=== PATIENT | male | born 1945 | race Caucasian/White ===

== ENCOUNTER 2021-05-02 15:54 | Inpatient (IN) | payer MEDICARE, OTHER, SELFPAY ==
[2021-05-02] VITALS (13 sets, daily range): BP systolic 77–126; BP diastolic 40–72; PULSE 60–80; RESP 10–21; TEMP 36.1–37; O2SAT 96–100; BMI 35.5
--- NOTE | 2021-05-02 16:19 | DI.RAD.S_ITS ---
PROCEDURE: XR CHEST 1V INDICATIONS: suspected sepsis TECHNIQUE: One view of the chest was acquired. COMPARISON: [facility], , CHEST 1VW, 07/04/2013, 3:45. FINDINGS: Surgical changes and devices: None. Lungs and pleura: Lungs are clear. No pleural effusions or pneumothorax. Mediastinum: Mediastinal contours appear normal. Heart size is normal. Bones and chest wall: No suspicious bony lesions. Overlying soft tissues appear unremarkable. IMPRESSION: No acute pulmonary process. Dictated by: Aviva Carrillo M.D. on 05/02/2021 at 16:45 Approved by: Aviva Carrillo M.D. on 05/02/2021 at 16:46
[2021-05-02 16:40] LABS: Add Manual Diff / Slide Review NO; Basophils Absolute Auto 0 /uL (0-100); Basophils Percent Auto 0.6 % (0-2); Eosinophils Absolute Auto 100 /uL (0-450); Eosinophils Percent Auto 1.6 % (2-4); Hematocrit 31.9 % (41-53); Hemoglobin 10.6 g/dL (13.5-17.5); Lymphocytes Absolute Auto 1100 /uL (1100-4500); Lymphocytes Percent Auto 18.3 % (25-40); Mean Corpuscular HGB Conc 33.4 % (30-36); Mean Corpuscular Hemoglobin 30.8 PG (26-34); Mean Corpuscular Volume 92.3 fL (80-100); Monocytes Absolute Auto 500 /uL (0-900); Monocytes Percent Auto 8.8 % (3-14); Neutrophils Absolute Auto 4400 /uL (1500-7000); Neutrophils Percent Auto 70.7 % (50-75); Platelet Count 127 X10^3/uL (150-400); Red Blood Cell Count 3.46 X10^6/uL (4.5-5.9); Red Cell Distribution Width 13.6 % (11.6-14.8); White Blood Cell Count 6.2 X10^3/uL (4.5-11.0)
[2021-05-02] MEDS: SODIUM CHLORIDE 0.9% 1,000 ML 500 ML IV (16:41)
[2021-05-02 16:47] LABS: Alanine Aminotransferase 85 IU/L (<50); Albumin 3.5 g/dL (3.5-5.0); Albumin Globulin Ratio 0.9 (1.0-2.8); Alkaline Phosphatase 110 U/L (38-126); Aspartate Aminotransferase 52 IU/L (17-59); BUN Creatinine Ratio 30.4 (6-22); Bilirubin Total 0.6 mg/dL (0.2-1.3); Blood Urea Nitrogen 65 mg/dL (9-20); Calcium 9.3 mg/dL (8.4-10.2); Carbon Dioxide 28 mmol/L (22-32); Chloride 101 mmol/L (98-107); Creatine Kinase 28 U/L (55-170); Estimated Glomerular Filt Rate 30.2 mL/min (>60); Globulin 3.8 g/dL (1.7-4.1); Glucose 127 mg/dL (80-110); HEMOLYSIS 16 (0-50); Lipase 778 U/L (23-300); Potassium 5.1 mmol/L (3.4-5.1); Sodium 135 mmol/L (137-145); Total Protein 7.3 g/dL (6.3-8.2)
[2021-05-02 16:48] LABS: Lactate (Lactic Acid) 2.5 mmol/L (0.7-2.1)
--- NOTE | 2021-05-02 16:52 | ED_ITS ---
HPI - Headache General Chief Complaint: Headache Stated Complaint: headache Time Seen by Provider: 05/02/21 16:39 Source: patient Mode of arrival: EMS History of Present Illness HPI Narrative: Patient is somewhat a poor historian. Is initially reported that he was being brought to the emergency department because of a headache and neck discomfort however there is also reports that his blood sugar was elevated today. He is a insulin-dependent diabetic. He states that he only occasionally takes his blood sugar. He also has a history of pancreatitis and is having abdominal discomfort. Unsure as to when all of these symptoms started but appears to be sometime within the past 24-48 hours. He states he has not drank any alcohol in the past 2 months. 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 He states that his headache is all over his head. Has not tried anything for it. Also having neck discomfort. This neck discomfort is not necessarily new for him. He denies any fevers. His abdominal pain is all over but specifically on the left side. He has had symptoms similar to this in the past. No back pain. Has not tried anything for his abdominal pain for Related Data Home Medications Medication Instructions Recorded Confirmed ASCORBIC ACID (VITAMIN C) 500 mg PO QAM #0 11/06/11 ASPIRIN (#ASPI-COR) 81 mg PO HS #0 11/06/11 Apple Cider Vinegar/Kelp/Lec 1 cap PO BID #0 11/06/11 (#KELP, LECITHIN, CIDER VINEGAR & B-6) Ascorbic Acid/Vitamin B Comp (#B 1 tab PO HS #0 11/06/11 COMPLEX W/VITAMIN C) CHOLECALCIFEROL (VITAMIN D) BID #0 11/06/11 CINNAMON (#CINNAMON) 500 mg PO BID #0 11/06/11 Fish Oil (#OMEGA-3) 1,000 mg PO BID #0 11/06/11 HYDROCODONE/ACET (HYDROCODONE 0 tab PO Q6HP #0 11/06/11 BITARTRATE-ACETAMINOPHEN) Loratadine (#ALAVERT) 10 mg PO Q DAY #0 11/06/11 MULTIVITAMIN (One Daily 1 tab PO HS #0 11/06/11 Multivitamin) Milk Thistle Seed (#MILK THISTLE) 500 mg PO Q DAY #0 11/06/11 Oxycodone/Acetaminophen (Percocet 0 tab PO Q6HP #0 11/06/11 5-325 MG Tablet) POTASSIUM CHLORIDE (POTASSIUM 20 meq PO Q DAY #0 11/06/11 CHLORIDE 10ML VIAL) amlodipine 10 mg tablet 10 mg PO QDAY #0 11/06/11 atorvastatin 80 mg tablet (Lipitor) 80 mg PO HS #0 11/06/11 diazepam 5 mg tablet (Valium) 5 mg PO PRN #0 11/06/11 duloxetine 60 mg capsule,delayed 60 mg PO HS #0 11/06/11 release (Cymbalta) furosemide 40 mg tablet 40 mg PO Q DAY #0 11/06/11 insulin glargine 100 unit/mL 0 unit SQ BID #10 ml 11/06/11 subcutaneous solution (Lantus U-100 Insulin) losartan 100 mg tablet (Cozaar) HS #0 11/06/11 testosterone cypionate 200 mg/mL 200 mg IM QMONTH #0 11/06/11 intramuscular oil (Depo-Testosterone) albuterol sulfate 90 mcg/actuation PRN #0 10/03/16 aerosol inhaler (Ventolin HFA) amlodipine 5 mg tablet (Norvasc) BID #0 10/03/16 ascorbic acid (vitamin C) 500 mg QDAY #0 10/03/16 tablet aspirin 81 mg chewable tablet QPM #0 10/03/16 atorvastatin 40 mg tablet (Lipitor) QPM #0 10/03/16 carvedilol 25 mg tablet (Coreg) BID #0 10/03/16 clonidine 0.1 mg/24 hr weekly BID #0 10/03/16 transdermal patch (Rnjfaaoq-HQS-5) diazepam 5 mg tablet (Valium) PRN #0 10/03/16 diphenhydramine 25 QPM #0 10/03/16 mg-acetaminophen 500 mg tablet (Tylenol PM Extra Strength) duloxetine 60 mg capsule,delayed QPM #0 10/03/16 release (Cymbalta) furosemide 40 mg tablet BID #0 10/03/16 hydrocodone 5 mg-acetaminophen 300 3 - 325 mg PRN #0 10/03/16 mg tablet (Vicodin) hydrocortisone 1 % topical cream PRN #0 10/03/16 (Cortizone-10) insulin glargine 100 unit/mL 90 u BID #0 10/03/16 subcutaneous solution (Lantus U-100 Insulin) loratadine 10 mg capsule (Claritin QDAY #0 10/03/16 Liqui-Gel) losartan 50 mg tablet (Cozaar) QPM #0 10/03/16 multivitamin (Multiple Vitamins) QDAY #0 10/03/16 omeprazole magnesium 20 mg QDAY #0 10/03/16 tablet,delayed release (Prilosec OTC) potassium bicarbonate-citric acid QDAY #0 10/03/16 20 mEq effervescent tablet (Effer-K) Previous Rx's Medication Instructions Recorded gabapentin 300 mg capsule 300 mg PO SEE INSTRUCTIONS #360 cap 10/15/16 (Neurontin) Allergies Allergy/AdvReac Type Severity Reaction Status Date / Time From LYRICA Allergy Mild Uncoded 11/26/17 12:55 From SEPTRA DS Allergy Mild Uncoded 11/26/17 12:55 From ZOCOR Allergy Mild Uncoded 11/26/17 12:55 TCN (TETRACYCLINE) Allergy Mild Uncoded 11/26/17 12:55 Review of Systems Constitutional Constitutional: Reports as per HPI, Reports fatigue, Denies fever(s) and Reports headache(s) Eyes Eyes: Reports as per HPI and Reports system reviewed and no additional complaints, except as documented ENT Ears, Nose, Mouth, and Throat: Reports headache(s) Cardiovascular Cardiovascular: Reports system reviewed and no additional complaints, except as documented Respiratory Respiratory: Reports system reviewed and no additional complaints, except as documented Gastrointestinal Gastrointestinal: Reports as per HPI and Reports system reviewed and no additional complaints, except as documented Genitourinary Genitourinary: Reports system reviewed and no additional complaints, except as documented Musculoskeletal Musculoskeletal: Reports system reviewed and no additional complaints, except as documented Integumentary/Breasts Skin/Breast: Reports system reviewed and no additional complaints, except as documented Neurologic Neurologic: Reports headache(s) Endocrine Endocrine: Reports fatigue Hematologic/Lymphatic On Anticoagulants: No Patient History Medical History Diabetes Hyperlipidemia Hypertension Social History lives independently: Yes Exam Initial Vital Signs Initial Vital Signs: Vital Signs Temperature 97.2 F L 05/02/21 16:07 Pulse Rate 80 05/02/21 16:07 Respiratory Rate 20 05/02/21 16:07 Blood Pressure 77/40 L 05/02/21 16:07 Pulse Oximetry 99 05/02/21 16:07 Const General: comfortable HENMT Head: normal to inspection and normocephalic Nose: external nose normal Eyes General: appearance normal, both eyes and all related structures Chest Chest: normal inspection of the chest Resp Effort & Inspection: normal respiratory effort Auscultation: clear to auscultation bilaterally Cardio Rate: regular rate Rhythm: regular rhythm GI Inspection: normal to inspection Palpation: No firm and tender (Left-sided abdomen) Skin Other: Multiple chronic wounds left lower extremity Neuro General: patient alert, patient awake, patient oriented x3 and moves all extremities Cranial Nerves: CN's II-XI intact bilaterally Gait: normal gait Motor: muscle tone normal throughout Extrem Other: 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 Psych Appearance: disheveled Course Orders Ordered: ED Orders 05/02/21 16:19 XR chest 1V Stat EKG-12 Lead Stat RT Consult Eval and Treat Now 05/02/21 16:20 BNP [NT-proBNP (BNP-Adult 18+)] Stat Complete Blood Count AUTO DIFF Stat Comprehensive Metabolic Panel Stat Ethanol (ETOH) Stat Lactate (Lactic Acid) Stat Lipase Stat Procalcitonin Stat Troponin & CK Cardiac Panel Stat 05/02/21 16:50 Blood Culture Stat 05/02/21 16:53 CT abdomen pelvis w con Stat CT head/brain wo con Stat 05/02/21 18:17 COVID19 - ADMIT (MAINTENANCE REPAIRER swab/PCR) Stat Discontinued Medications Sodium Chloride (Normal Saline 0.9%) 1,000 mls @ 1,000 mls/hr IV BOLUS ONE Stop: 05/02/21 17:18 Last Admin: 05/02/21 16:41 Dose: 500 mls/hr Documented by: MORENA Vital Signs Vital signs: Vital Signs - 8 hr 05/02/21 16:07 05/02/21 16:31 05/02/21 16:32 Temperature 97.2 F L Pulse Rate 80 60 72 Respiratory Rate 20 Blood Pressure 77/40 L 91/53 L Pulse Oximetry 99 98 99 05/02/21 16:38 05/02/21 16:45 05/02/21 17:00 Temperature Pulse Rate 72 69 70 Respiratory Rate 21 10 L 16 Blood Pressure 83/51 L 87/53 L Pulse Oximetry 99 97 99 05/02/21 17:22 05/02/21 17:28 05/02/21 17:30 Temperature Pulse Rate 76 76 73 Respiratory Rate 20 Blood Pressure 107/53 L 114/57 L Pulse Oximetry 96 99 99 05/02/21 17:45 05/02/21 18:00 05/02/21 18:15 Temperature 98.6 F Pulse Rate 72 73 73 Respiratory Rate 10 L 11 L 14 Blood Pressure 107/55 L 126/59 L 113/59 L Pulse Oximetry 98 98 97 MDM - Headache Lab Data Attestation: I reviewed the patient's lab results. Result diagrams: 05/02/21 16:20 05/02/21 16:20 Labs: Lab Results 05/02/21 05/02/21 05/02/21 Range/Units 16:20 16:20 16:20 WBC 6.2 (4.5-11.0) X10^3/uL RBC 3.46 L (4.5-5.9) X10^6/uL Hgb 10.6 L (13.5-17.5) g/dL Hct 31.9 L (41-53) % MCV 92.3 (80-100) fL MCH 30.8 (26-34) PG MCHC 33.4 (30-36) % RDW 13.6 (11.6-14.8) % Plt Count 127 L (150-400) X10^3/uL Neut % (Auto) 70.7 (50-75) % Lymph % (Auto) 18.3 L (25-40) % [place] % (Auto) 8.8 (3-14) % Eos % (Auto) 1.6 L (2-4) % Baso % (Auto) 0.6 (0-2) % Neut # (Auto) 4400 (1679-4919) /uL Lymph # (Auto) 1100 (5865-3731) /uL [place] # (Auto) 500 (0-900) /uL Eos # (Auto) 100 (0-450) /uL Baso # (Auto) 0 (0-100) /uL Sodium 135 L (137-145) mmol/L Potassium 5.1 (3.4-5.1) mmol/L Chloride 101 (98-107) mmol/L Carbon Dioxide 28 (22-32) mmol/L BUN 65 H (9-20) mg/dL Creatinine 2.14 H (0.66-1.25) mg/dL Estimated GFR 30.2 L (>60) mL/min BUN/Creatinine Ratio 30.4 H (6-22) Glucose 127 H (80-110) mg/dL Lactate 2.5 H (0.7-2.1) mmol/L Calcium 9.3 (8.4-10.2) mg/dL Total Bilirubin 0.6 (0.2-1.3) mg/dL AST 52 (17-59) IU/L ALT 85 H (<50) IU/L Alkaline Phosphatase 110 (38-126) U/L Total Creatine Kinase (55-170) U/L CK-MB (CK-2) CK-MB (CK-2) Rel Index Troponin I (0.01-0.034) ng/mL NT-Pro-B Natriuret Pep (<450) pg/mL Total Protein 7.3 (6.3-8.2) g/dL Albumin 3.5 (3.5-5.0) g/dL Globulin 3.8 (1.7-4.1) g/dL Albumin/Globulin Ratio 0.9 L (1.0-2.8) Lipase 778 H (23-300) U/L Procalcitonin 1.54 H (<0.5) ng/mL Ethyl Alcohol ( - 10) mg/dL 05/02/21 05/02/21 Range/Units 16:20 16:20 WBC (4.5-11.0) X10^3/uL RBC (4.5-5.9) X10^6/uL Hgb (13.5-17.5) g/dL Hct (41-53) % MCV (80-100) fL MCH (26-34) PG MCHC (30-36) % RDW (11.6-14.8) % Plt Count (150-400) X10^3/uL Neut % (Auto) (50-75) % Lymph % (Auto) (25-40) % [place] % (Auto) (3-14) % Eos % (Auto) (2-4) % Baso % (Auto) (0-2) % Neut # (Auto) (1386-9014) /uL Lymph # (Auto) (4312-5793) /uL [place] # (Auto) (0-900) /uL Eos # (Auto) (0-450) /uL Baso # (Auto) (0-100) /uL Sodium (137-145) mmol/L Potassium (3.4-5.1) mmol/L Chloride (98-107) mmol/L Carbon Dioxide (22-32) mmol/L BUN (9-20) mg/dL Creatinine (0.66-1.25) mg/dL Estimated GFR (>60) mL/min BUN/Creatinine Ratio (6-22) Glucose (80-110) mg/dL Lactate (0.7-2.1) mmol/L Calcium (8.4-10.2) mg/dL Total Bilirubin (0.2-1.3) mg/dL AST (17-59) IU/L ALT (<50) IU/L Alkaline Phosphatase (38-126) U/L Total Creatine Kinase 28 L (55-170) U/L CK-MB (CK-2) TNP CK-MB (CK-2) Rel Index TNP Troponin I < 0.012 (0.01-0.034) ng/mL NT-Pro-B Natriuret Pep 80 (<450) pg/mL Total Protein (6.3-8.2) g/dL Albumin (3.5-5.0) g/dL Globulin (1.7-4.1) g/dL Albumin/Globulin Ratio (1.0-2.8) Lipase (23-300) U/L Procalcitonin (<0.5) ng/mL Ethyl Alcohol < 10 ( - 10) mg/dL Imaging Data Chest x-ray: Radiologist's Impression: [address] [address] XRay Report Signed Patient: Andrew Sy MR#: [id number] : 1945 Acct:[id number] Age/Sex: 75 / M Date of Service: 05/02/21 Loc: ED Accession Number: [id number] ?? Procedure: XR chest 1V Ordering Provider: Kaveh Huber D.O. PROCEDURE:? XR CHEST 1V ? INDICATIONS:? suspected sepsis ? TECHNIQUE:? One view of the chest was acquired.? ? COMPARISON:? [facility], CR, CHEST 1VW, 07/04/2013, 3:45. ? FINDINGS:? ? Surgical changes and devices:? None.? ? Lungs and pleura:? Lungs are clear.? No pleural effusions or pneumothorax.? ? Mediastinum:? Mediastinal contours appear normal.? Heart size is normal.? ? Bones and chest wall:? No suspicious bony lesions.? Overlying soft tissues appear unremarkable.? ? IMPRESSION:? No acute pulmonary process. ? ? Dictated by: Aviva Carrillo M.D. on 05/02/2021 at 16:45 ? ? Approved by: Aviva Carrillo M.D. on 05/02/2021 at 16:46? CT scan - abdomen/pelvis: Radiologist's Impression: [address] [address] [address] Scan Report Signed Patient: Andrew Sy MR#: [id number] : 1945 Acct:[id number] Age/Sex: 75 / M Date of Service: 05/02/21 Loc: ED Accession Number: [id number] ?? Procedure: CT abdomen pelvis w con Ordering Provider: Kaveh Huber D.O. PROCEDURE:? CT ABDOMEN PELVIS W CON ? INDICATIONS:? Left-sided abdominal pain ? TECHNIQUE:? After the administration of intravenous contrast, axial sections acquired from the lung bases to the pubic symphysis.? Coronal and sagittal reformats were performed.? For radiation dose reduction, the following was used:? automated exposure control, adjustment of mA and/or kV according to patient size.? ? COMPARISON:? [facility], CT, ABDOMEN W&W/O CONTRAST, 07/14/2013, 13:45. ? FINDINGS:? Image quality:? Excellent.? ? Lung bases:? Dependent atelectasis in posterior aspect of bilateral lung bases are seen. Heart:? Heart size is normal, no pericardial effusion.? Moderate coronary atherosclerotic calcifications are seen. ? ABDOMEN: Liver:? Nodular liver contour is seen, no discrete hepatic lesion is noted. Gallbladder:? Calcified stones are noted in dependent portion of gallbladder lumen.? No gallbladder wall thickening or pericholecystic fluid.? Biliary ducts:? No gross biliary ductal dilatation. Pancreas:? Pancreas is enlarged with mild peripancreatic fat stranding.? No peripancreatic fluid collection is noted.? No discrete pancreatic lesion. Spleen:? There is splenomegaly, no discrete splenic lesion. Adrenal Glands:? Unremarkable.? ? Kidneys and Ureters:? Bilateral kidneys are normal in size.? Bilateral tiny nonobstructing renal calculi are noted.? There are bilateral renal cysts measures up to 3.5 x 3.3 cm in size in mid to lower pole of left kidney.? No hydronephrosis or hydroureter. ? Stomach and Bowel:? There is mild fecal stasis in the colon.? No bowel obstruction or abnormal bowel wall thickening.? No mesenteric fat stranding.? Descending colon and sigmoid colon diverticulosis is seen, no evidence of acute diverticulitis.? Small hiatal hernia is seen. Peritoneum:? No abnormal intraperitoneal fluid.? No free air.? ? Ventral Wall: ? No hernias.? Abdominal Nodes:? No retroperitoneal or mesenteric adenopathy by size criteria.? Vessels:? Aorta and inferior vena cava are normal in size.? Moderate atherosclerotic calcifications throughout abdominal aorta is seen.? ? PELVIS: Pelvic Organs:? Enlarged prostate gland with mass effect on floor of urinary bladder is seen. Bladder:? There is mild diffuse bladder wall thickening, no discrete bladder wall mass. Pelvic Nodes: No enlarged lymph nodes.? Miscellaneous:? Bilateral inguinal hernia are seen containing fat only.? Bones:? No suspicious bony lesion.? No acute vertebral body compression fracture. ? ? IMPRESSION:? 1. Enlarged pancreas with mild peripancreatic fat stranding, concerning for acute pancreatitis suggest clinical correlation.? No discrete peripancreatic fluid collection is seen. 2.? Lobulated liver contour which could represent early cirrhosis suggest clinical correlation.? Splenomegaly, no discrete splenic lesion. 3.? Bilateral nonobstructing renal calculi and multiple bilateral renal cysts.? No obstructing renal stone or hydronephrosis.? Mild diffuse bladder wall thickening which may indicate chronic urinary outlet obstruction.? No discrete bladder wall mass.? Enlarged prostate gland with mild mass effect on floor of urinary bladder. 4. Small hiatal hernia.? No bowel obstruction.? Mild constipation.? No abnormal bowel wall thickening.? No free fluid or free air. 5. Cholelithiasis without CT evidence of acute cholecystitis. 6. Bilateral inguinal hernia containing fat only.? ? ? Dictated by: Calos Hyde M.D. on 05/02/2021 at 17:30 ? ? Approved by: Calos Hyde M.D. on 05/02/2021 at 17:37 CT scan - head: Radiologist's Impression: [address] [address] [address] Scan Report Signed Patient: Andrew Sy MR#: [id number] : 1945 Acct:[id number] Age/Sex: 75 / M Date of Service: 05/02/21 Loc: ED Accession Number: [id number] ?? Procedure: CT head/brain wo con Ordering Provider: Kaveh Huber D.O. PROCEDURE:? CT HEAD/BRAIN WO CON ? INDICATIONS:? bad headache ? TECHNIQUE:? Noncontrast 4.5 mm thick angled axial sections acquired from the foramen magnum to the vertex, with coronal and sagittal reformats.? For radiation dose reduction, the following was used:? automated exposure control, adjustment of mA and/or kV according to patient size.? ? COMPARISON:? None. ? FINDINGS:? Image quality:? Excellent.? ? CSF spaces:? Basal cisterns are patent.? No extra-axial fluid collections.? The ventricles are symmetric in size and shape.? ? Brain:? No intracranial bleeds or masses.? There is cerebral volume loss for age, with resultant ventricular and sulcal prominence.? There are periventricular and deep white matter chronic small vessel ischemic changes.? There is intracranial internal carotid artery atherosclerosis.? ? Skull and face:? Calvarium and visualized facial bones appear intact, without suspicious lesions.? ? Sinuses:? Visualized sinuses and mastoids are clear.? ? IMPRESSION:? 1. No CT evidence of acute intracranial pathology. 2. Diffuse atrophy and mild white matter chronic small vessel ischemic changes.? ? ? Dictated by: Calos Hyde M.D. on 05/02/2021 at 17:27 ? ? Approved by: Calos Hyde M.D. on 05/02/2021 at 17:28 ECG Data Attestation: I personally reviewed and interpreted this ECG as follows: Interpretation: Sinus rhythm Normal axis Normal QRS Normal QTC No ST T wave changes- [facility] Narrative Medical decision making narrative: Head CT is unremarkable, I have low suspicion for meningitis. Low suspicion for intracranial pathology. Patient CT scan of his abdomen pelvis shows what is consistent with pancreatitis. He does not have leukocytosis however does have an elevated procalcitonin. Elevated lactate, physical exam is consistent with pancreatitis and a history that is consistent with this. He states he has not drink any alcohol in the past 2 months. Apparently this is been the cause of his pancreatitis in the past. Patient arrived hypotensive however this improved with fluids. His mean arterial pressure was never below 65. He is afebrile. He does have chronic wounds in his left lower extremity however I feel that his presentation today is more consistent with pancreatitis. Low suspicion for pneumonia. Will hold on antibiotics for now given the fact that this is most likely pancreatitis. Discussed the case with Dr. Culver with Internal Medicine who will admit for further evaluation treatment. Discussed this with the patient as well. He expressed understanding and agreement. Discharge Plan Departure Patient Disposition: Admitted As Inpatient Clinical Impression: Acute pancreatitis, Hypotension
--- NOTE | 2021-05-02 16:53 | DI.CT.S_ITS ---
PROCEDURE: CT ABDOMEN PELVIS W CON INDICATIONS: Left-sided abdominal pain TECHNIQUE: After the administration of intravenous contrast, axial sections acquired from the lung bases to the pubic symphysis. Coronal and sagittal reformats were performed. For radiation dose reduction, the following was used: automated exposure control, adjustment of mA and/or kV according to patient size. COMPARISON: [facility], CT, ABDOMEN W&W/O CONTRAST, 07/14/2013, 13:45. FINDINGS: Image quality: Excellent. Lung bases: Dependent atelectasis in posterior aspect of bilateral lung bases are seen. Heart: Heart size is normal, no pericardial effusion. Moderate coronary atherosclerotic calcifications are seen. ABDOMEN: Liver: Nodular liver contour is seen, no discrete hepatic lesion is noted. Gallbladder: Calcified stones are noted in dependent portion of gallbladder lumen. No gallbladder wall thickening or pericholecystic fluid. Biliary ducts: No gross biliary ductal dilatation. Pancreas: Pancreas is enlarged with mild peripancreatic fat stranding. No peripancreatic fluid collection is noted. No discrete pancreatic lesion. Spleen: There is splenomegaly, no discrete splenic lesion. Adrenal Glands: Unremarkable. Kidneys and Ureters: Bilateral kidneys are normal in size. Bilateral tiny nonobstructing renal calculi are noted. There are bilateral renal cysts measures up to 3.5 x 3.3 cm in size in mid to lower pole of left kidney. No hydronephrosis or hydroureter. Stomach and Bowel: There is mild fecal stasis in the colon. No bowel obstruction or abnormal bowel wall thickening. No mesenteric fat stranding. Descending colon and sigmoid colon diverticulosis is seen, no evidence of acute diverticulitis. Small hiatal hernia is seen. Peritoneum: No abnormal intraperitoneal fluid. No free air. Ventral Wall: No hernias. Abdominal Nodes: No retroperitoneal or mesenteric adenopathy by size criteria. Vessels: Aorta and inferior vena cava are normal in size. Moderate atherosclerotic calcifications throughout abdominal aorta is seen. PELVIS: Pelvic Organs: Enlarged prostate gland with mass effect on floor of urinary bladder is seen. Bladder: There is mild diffuse bladder wall thickening, no discrete bladder wall mass. Pelvic Nodes: No enlarged lymph nodes. Miscellaneous: Bilateral inguinal hernia are seen containing fat only. Bones: No suspicious bony lesion. No acute vertebral body compression fracture. IMPRESSION: 1. Enlarged pancreas with mild peripancreatic fat stranding, concerning for acute pancreatitis suggest clinical correlation. No discrete peripancreatic fluid collection is seen. 2. Lobulated liver contour which could represent early cirrhosis suggest clinical correlation. Splenomegaly, no discrete splenic lesion. 3. Bilateral nonobstructing renal calculi and multiple bilateral renal cysts. No obstructing renal stone or hydronephrosis. Mild diffuse bladder wall thickening which may indicate chronic urinary outlet obstruction. No discrete bladder wall mass. Enlarged prostate gland with mild mass effect on floor of urinary bladder. 4. Small hiatal hernia. No bowel obstruction. Mild constipation. No abnormal bowel wall thickening. No free fluid or free air. 5. Cholelithiasis without CT evidence of acute cholecystitis. 6. Bilateral inguinal hernia containing fat only. Dictated by: Calos Hyde M.D. on 05/02/2021 at 17:30 Approved by: Calos Hyde M.D. on 05/02/2021 at 17:37
--- NOTE | 2021-05-02 16:53 | DI.CT.S_ITS ---
PROCEDURE: CT HEAD/BRAIN WO CON INDICATIONS: bad headache TECHNIQUE: Noncontrast 4.5 mm thick angled axial sections acquired from the foramen magnum to the vertex, with coronal and sagittal reformats. For radiation dose reduction, the following was used: automated exposure control, adjustment of mA and/or kV according to patient size. COMPARISON: None. FINDINGS: Image quality: Excellent. CSF spaces: Basal cisterns are patent. No extra-axial fluid collections. The ventricles are symmetric in size and shape. Brain: No intracranial bleeds or masses. There is cerebral volume loss for age, with resultant ventricular and sulcal prominence. There are periventricular and deep white matter chronic small vessel ischemic changes. There is intracranial internal carotid artery atherosclerosis. Skull and face: Calvarium and visualized facial bones appear intact, without suspicious lesions. Sinuses: Visualized sinuses and mastoids are clear. IMPRESSION: 1. No CT evidence of acute intracranial pathology. 2. Diffuse atrophy and mild white matter chronic small vessel ischemic changes. Dictated by: Calos Hyde M.D. on 05/02/2021 at 17:27 Approved by: Calos Hyde M.D. on 05/02/2021 at 17:28
[2021-05-02 16:59] LABS: NT-proBNP (BNP-Adult 18+) 80 pg/mL (<450); Troponin I < 0.012 ng/mL (0.01-0.034)
[2021-05-02 17:04] LABS: Procalcitonin 1.54 ng/mL (<0.5)
[2021-05-02 17:07] LABS: Ethanol (ETOH) < 10 mg/dL
[2021-05-02 18:28] LABS: Reflexed Lactate in 2 Hours Y
[2021-05-02 19:39] LABS: COVID19 - ADMIT (NP swab/PCR) Negative (Negative)
--- NOTE | 2021-05-02 20:50 | PM.HP.1 ---
History of Present Illness History of Present Illness Date Patient Seen: 05/02/21 Time Patient Seen: 20:53 Chief complaint: headache Narrative: The patient is a 75-year-old male with a history of type 2 diabetes, hypertension, hyperlipidemia, prior history of pancreatitis, remote history of EtOH use who quit 3 months ago who presented to the hospital for acute abdominal pain. Patient states that today he woke up and was feeling quite shaky unsteady and dizzy. He also complained of a headache and neck pain. Because he was feeling poorly he presented to the hospital for evaluation. Patient also reports lower diffuse abdominal pain. He has no nausea or vomiting. He does report constipation. He has had no fever chills or cough. He denies any shortness of breath chest pain or palpitations. 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 He also has ulceration on the left lower extremity and has a dressing in place which she changes weekly. The patient was evaluated in the emergency room. White count was normal at 6.2. He was found to have a creatinine of 2.14, baseline unknown. In addition he was found to have a lipase of 778 with a procalcitonin of 1.54. A CT of the abdomen and pelvis revealed an enlarged pancreas with mild pancreas peripancreatic fat stranding suggestive of acute pancreatitis. There was a lobulated liver which could represent early cirrhosis. Patient is admitted to the hospital for treatment of acute pancreatitis Patient History Medical History Diabetes Hyperlipidemia Hypertension Surgical History (Updated 05/02/21 @ 21:26 by Iris Bello MD) Hx of right BKA Family & Social History Family History (Updated 05/02/21 @ 21:26 by Iris Bello MD) Mother Lymphoma Social History: household members spouse,other Prior Living Arrangements House lives independently Yes Safety & Behavioral: Feels Safe in Current Yes Environment Been Physically Hurt or No Threatened By a Person Suicidal Ideation Description None Tobacco & Substance use: Tobacco type cigarettes Smoking Status Former smoker Smoking packs per day 2 alcohol intake former alcohol intake frequency 3 or more drinks per day Substance Use Type opiates Meds Home Medications and Allergies Home Medications Medication Instructions Recorded Confirmed Type ASCORBIC ACID (VITAMIN C) 500 mg PO QAM #0 11/06/11 History ASPIRIN (#ASPI-COR) 81 mg PO HS #0 11/06/11 History Apple Cider Vinegar/Kelp/Lec 1 cap PO BID #0 11/06/11 History (#KELP, LECITHIN, CIDER VINEGAR & B-6) Ascorbic Acid/Vitamin B Comp (#B 1 tab PO HS #0 11/06/11 History COMPLEX W/VITAMIN C) CHOLECALCIFEROL (VITAMIN D) BID #0 11/06/11 History CINNAMON (#CINNAMON) 500 mg PO BID #0 11/06/11 History Fish Oil (#OMEGA-3) 1,000 mg PO BID #0 11/06/11 History HYDROCODONE/ACET (HYDROCODONE 0 tab PO Q6HP #0 11/06/11 History BITARTRATE-ACETAMINOPHEN) Loratadine (#ALAVERT) 10 mg PO Q DAY #0 11/06/11 History MULTIVITAMIN (One Daily 1 tab PO HS #0 11/06/11 History Multivitamin) Milk Thistle Seed (#MILK THISTLE) 500 mg PO Q DAY #0 11/06/11 History Oxycodone/Acetaminophen (Percocet 0 tab PO Q6HP #0 11/06/11 History 5-325 MG Tablet) POTASSIUM CHLORIDE (POTASSIUM 20 meq PO Q DAY #0 11/06/11 History CHLORIDE 10ML VIAL) amlodipine 10 mg tablet 10 mg PO QDAY #0 11/06/11 History atorvastatin 80 mg tablet (Lipitor) 80 mg PO HS #0 11/06/11 History diazepam 5 mg tablet (Valium) 5 mg PO PRN #0 11/06/11 History duloxetine 60 mg capsule,delayed 60 mg PO HS #0 11/06/11 History release (Cymbalta) furosemide 40 mg tablet 40 mg PO Q DAY #0 11/06/11 History insulin glargine 100 unit/mL 0 unit SQ BID #10 ml 11/06/11 History subcutaneous solution (Lantus U-100 Insulin) losartan 100 mg tablet (Cozaar) HS #0 11/06/11 History testosterone cypionate 200 mg/mL 200 mg IM QMONTH #0 11/06/11 History intramuscular oil (Depo-Testosterone) albuterol sulfate 90 mcg/actuation PRN #0 10/03/16 History aerosol inhaler (Ventolin HFA) amlodipine 5 mg tablet (Norvasc) BID #0 10/03/16 History ascorbic acid (vitamin C) 500 mg QDAY #0 10/03/16 History tablet aspirin 81 mg chewable tablet QPM #0 10/03/16 History atorvastatin 40 mg tablet (Lipitor) QPM #0 10/03/16 History carvedilol 25 mg tablet (Coreg) BID #0 10/03/16 History clonidine 0.1 mg/24 hr weekly BID #0 10/03/16 History transdermal patch ([place]-GBN-7) diazepam 5 mg tablet (Valium) PRN #0 10/03/16 History diphenhydramine 25 QPM #0 10/03/16 History mg-acetaminophen 500 mg tablet (Tylenol PM Extra Strength) duloxetine 60 mg capsule,delayed QPM #0 10/03/16 History release (Cymbalta) furosemide 40 mg tablet BID #0 10/03/16 History hydrocodone 5 mg-acetaminophen 300 3 - 325 mg PRN #0 10/03/16 History mg tablet (Vicodin) hydrocortisone 1 % topical cream PRN #0 10/03/16 History (Cortizone-10) insulin glargine 100 unit/mL 90 u BID #0 10/03/16 History subcutaneous solution (Lantus U-100 Insulin) loratadine 10 mg capsule (Claritin QDAY #0 10/03/16 History Liqui-Gel) losartan 50 mg tablet (Cozaar) QPM #0 10/03/16 History multivitamin (Multiple Vitamins) QDAY #0 10/03/16 History omeprazole magnesium 20 mg QDAY #0 10/03/16 History tablet,delayed release (Prilosec OTC) potassium bicarbonate-citric acid QDAY #0 10/03/16 History 20 mEq effervescent tablet (Effer-K) gabapentin 300 mg capsule 300 mg PO SEE INSTRUCTIONS #360 cap 10/15/16 Rx (Neurontin) Allergies Allergy/AdvReac Type Severity Reaction Status Date / Time From LYRICA Allergy Mild Uncoded 11/26/17 12:55 From SEPTRA DS Allergy Mild Uncoded 11/26/17 12:55 From ZOCOR Allergy Mild Uncoded 11/26/17 12:55 TCN (TETRACYCLINE) Allergy Mild Uncoded 11/26/17 12:55 Review of Systems Review of Systems Narrative: Ten point review of systems is negative I have reviewed the patient's home medications Exam Vital Signs (past 8 hours): - 05/02/21 16:07 05/02/21 16:31 05/02/21 16:32 Temperature 97.2 F L Pulse Rate 80 60 72 Respiratory Rate 20 Blood Pressure 77/40 L 91/53 L Pulse Oximetry 99 98 99 05/02/21 16:38 05/02/21 16:45 05/02/21 17:00 Temperature Pulse Rate 72 69 70 Respiratory Rate 21 10 L 16 Blood Pressure 83/51 L 87/53 L Pulse Oximetry 99 97 99 05/02/21 17:22 05/02/21 17:28 05/02/21 17:30 Temperature Pulse Rate 76 76 73 Respiratory Rate 20 Blood Pressure 107/53 L 114/57 L Pulse Oximetry 96 99 99 05/02/21 17:45 05/02/21 18:00 05/02/21 18:15 Temperature 98.6 F Pulse Rate 72 73 73 Respiratory Rate 10 L 11 L 14 Blood Pressure 107/55 L 126/59 L 113/59 L Pulse Oximetry 98 98 97 05/02/21 19:20 Temperature 96.9 F L Pulse Rate 73 Respiratory Rate 20 Blood Pressure 107/72 Pulse Oximetry 100 Oxygen Delivery Method Room Air Oxygen Flow Rate 0 Narrative Exam Narrative: Pleasant gentleman resting comfortably HENNY Other: HEENT: Normocephalic atraumatic, extraocular muscles are intact, oropharynx is clear, neck is supple without adenopathy Neck Other: Neck is soft, no adenopathy noted Resp Other: Lungs: Clear to auscultation Cardio Other: Cardiac exam: Regular rate and rhythm normal S1-S2 with a 2/6 systolic ejection murmur GI Other: Abdomen: Soft, exquisitely tender to palpation, tender in the lower left and right quadrants. There is no rebound tenderness. There is no palpable masses. Right upper quadrant liver is felt to be 2 finger breaths below the costal margin. Normal active bowel tones are noted Back/Spine/Pelvis Other: Back exam no lesions noted Skin Other: Left lower extremity with very dry skin and superficial abrasion on this she had an. The left ankle with some crusting old healed ulcerations Extrem Other: No edema of the lower extremity Psych Other: Patient is appropriate, answers questions accordingly, is alert and responsive and has no evidence of hallucination Objective Labs Result Diagrams: 05/02/21 16:20 05/02/21 16:20 Labs: Laboratory Results - last 24 hr 05/02/21 05/02/21 05/02/21 16:20 16:20 16:20 WBC 6.2 RBC 3.46 L Hgb 10.6 L Hct 31.9 L MCV 92.3 MCH 30.8 MCHC 33.4 RDW 13.6 Plt Count 127 L Neut % (Auto) 70.7 Lymph % (Auto) 18.3 L [place] % (Auto) 8.8 Eos % (Auto) 1.6 L Baso % (Auto) 0.6 Neut # (Auto) 4400 Lymph # (Auto) 1100 [place] # (Auto) 500 Eos # (Auto) 100 Baso # (Auto) 0 Sodium 135 L Potassium 5.1 Chloride 101 Carbon Dioxide 28 BUN 65 H Creatinine 2.14 H Estimated GFR 30.2 L BUN/Creatinine Ratio 30.4 H Glucose 127 H Lactate 2.5 H Calcium 9.3 Total Bilirubin 0.6 AST 52 ALT 85 H Alkaline Phosphatase 110 Total Creatine Kinase CK-MB (CK-2) CK-MB (CK-2) Rel Index Troponin I NT-Pro-B Natriuret Pep Total Protein 7.3 Albumin 3.5 Globulin 3.8 Albumin/Globulin Ratio 0.9 L Lipase 778 H Procalcitonin 1.54 H Ethyl Alcohol SARS-CoV-2 (PCR) 05/02/21 05/02/21 05/02/21 16:20 16:20 18:30 WBC RBC Hgb Hct MCV MCH MCHC RDW Plt Count Neut % (Auto) Lymph % (Auto) [place] % (Auto) Eos % (Auto) Baso % (Auto) Neut # (Auto) Lymph # (Auto) [place] # (Auto) Eos # (Auto) Baso # (Auto) Sodium Potassium Chloride Carbon Dioxide BUN Creatinine Estimated GFR BUN/Creatinine Ratio Glucose Lactate Calcium Total Bilirubin AST ALT Alkaline Phosphatase Total Creatine Kinase 28 L CK-MB (CK-2) TNP CK-MB (CK-2) Rel Index TNP Troponin I < 0.012 NT-Pro-B Natriuret Pep 80 Total Protein Albumin Globulin Albumin/Globulin Ratio Lipase Procalcitonin Ethyl Alcohol < 10 SARS-CoV-2 (PCR) Negative Assessment & Plan Assessment & Plan narrative: Impression 1. 75-year-old male admitted to the hospital with acute abdominal pain, elevated lipase, abnormal CT scan suggestive of acute pancreatitis -patient has a remote history of alcohol use but reports no alcohol for the past 3 months -he is currently on a statin for hyperlipidemia -lipase on admission is 778 -patient was hypotensive on admission, this improved with IV hydration -CT of the abdomen and pelvis Enlarged pancreas with mild peripancreatic fat stranding, concerning for acute pancreatitis suggest clinical correlation.? No discrete peripancreatic fluid collection is seen. -patient will continue on IV hydration, he will be made NPO, given antiemetics, and pain medication 2. Hypotension, -elevated lactate at 2.5, creatinine 2.1 for -as we are unsure of his baseline creatinine it is hard to ascertain whether the patient has septic shock with end-organ failure -patient responded to IV hydration -Lasix will be held at this time -will hold his lisinopril as well 3 renal failure, question acute versus chronic -baseline creatinine is unknown\ -hold diuretics and FELIPA-inhibitor as above 4. Hyperlipidemia -continue statin 5. Type 2 diabetes -patient previously on 100 units of Lantus twice daily -will obtain a glycohemoglobin -as he is NPO will decrease his insulin to 50 units twice daily plus a sliding scale 7. Diabetic polyneuropathy -will continue Neurontin 8. Question history of heart failure coronary disease -patient on Coreg 25 twice daily, and aspirin, will continue same 9. Anxiety and depression -continue Cymbalta Patient reports his son is his DPOA Patient also reports he would like to be a full code He is admitted to the hospital as an inpatient I have reviewed all medications available to me and updated his chart accordingly Time Spent With Patient Critical Care time: I spent a total of [] minutes of critical care time on this patient's care today; this time is exclusive of procedural time.
[2021-05-02] MEDS: LACTATED RINGERS 1,000 ML 100 ML IV (21:11)
[2021-05-02] MEDS: DOCUSATE 100 MG CAPSULE PO (21:11)
[2021-05-02] MEDS: ATORVASTATIN 20 MG TABLET 40 MG PO (21:11)
[2021-05-02] MEDS: SENNOSIDES 8.6 MG TABLET 17.2 MG PO (21:11)
[2021-05-02] MEDS: carvediloL 12.5 MG TABLET 25 MG PO (21:11)
[2021-05-02] MEDS: HEPARIN 5,000 UNIT/ML VIAL 5000 UNIT SUBCUT (21:14)
[2021-05-02] MEDS: INSULIN GLARGINE 100 UNIT/ML 3ML PEN 50 UNIT SUBCUT (21:30)
[2021-05-02 21:38] LABS: Lactate 2HR (Lactic Acid Rflx) 1.8 mmol/L (0.7-2.1)
[2021-05-03] VITALS (8 sets, daily range): BP systolic 88–153; BP diastolic 60–97; PULSE 67–74; RESP 16–18; TEMP 35.8–36.5; O2SAT 94–99
[2021-05-03] MEDS: MORPHINE 4 MG/ML INJ IV (01:20)
[2021-05-03] MEDS: DEXTROSE 50 % IN WATER 25 GM/50 ML SYRINGE IV ×2 (01:40→06:15)
[2021-05-03] MEDS: LACTATED RINGERS 500 ML 1000 ML IV (03:00)
--- NOTE | 2021-05-03 03:11 | PC.NURSE ---
Addendum entered by Myra Borden R.N. 05/03/21 06:18: At 0550 pt alerted RN Abhijit Harris of chills, shakiness, general malaise. Pt fatigued. Glucose 45 mg/dL, BP 153/97 HR 71. Given PRN D50 25 mg IV. Provider contacted, ordered discontinuation of insulin and added D10W 50 mL/hr to run concurrent with LR @ 100mL/hr. 0625 glucose 127 mg/dL. Original Note: BGC at 0155 61, patient reported dizzniess, shakiness, and general malaise. Provider notified, ordered D50 25 mg one time dose. Administered with no difficulty. Glu increased to 169. At approximately 0216, this RN was notified by CERTIFIED ADDICTION COUNSELOR of low BP. Pt asymptomatic, alert and oriented, in no apparent cardiovascular or respiratory distress, w/ complaints of 8/10 lower abdominal pain. 0216 BP 79/40 HR 72 0218 BP 60/45 HR 67 Bladder scan showed 999+ mL present in bladder. Provider notified, ordered 500 mL LR bolus one NOW and placement of tovar cath. Tovar placed at 0230 by this RN. Approx 1500 mL out, urine cloudy, foul-smelling, and yellow. 0243 BP 106/68 HR 63 Pt reports pain significantly reduced. Remains asymptomatic. 0256 BP 103/70 HR 65 Will continue to monitor.
[2021-05-03 03:48] LABS: Bilirubin Urine UA NEGATIVE (NEGATIVE); Color Urine UA YELLOW; Glucose Urine UA TRACE g/dL (Negative); Ketones Urine UA NEGATIVE (NEGATIVE); Leukocyte Esterase Urine UA 3+ (NEGATIVE); Nitrite Urine UA NEGATIVE (Negative); Occult Blood Urine UA 2+ (Negative); Protein Urine UA 1+ (Negative); Urobilinogen Urine UA 0.2 E.U./dL (0.2); pH Urine UA 5.5 (4.5-8.0)
[2021-05-03 03:54] LABS: Appearance Urine UA CLOUDY
[2021-05-03] MEDS: LACTATED RINGERS 1,000 ML 100 ML IV (03:54)
[2021-05-03] MEDS: DEXTROSE 10 % IN WATER 1,000 ML 50 ML IV (06:15)
[2021-05-03 06:28] LABS: Bacteria Urine Many (>30); Culture Indicated Urine Specimen Cultured; RBC Urine None Seen (0-5/HPF); WBC Urine >100/HPF (0-5/HPF)
[2021-05-03 07:14] LABS: Add Manual Diff / Slide Review NO; Basophils Absolute Auto 0 /uL (0-100); Basophils Percent Auto 0.6 % (0-2); Eosinophils Absolute Auto 100 /uL (0-450); Eosinophils Percent Auto 2.7 % (2-4); Hematocrit 29.8 % (41-53); Hemoglobin 9.9 g/dL (13.5-17.5); Lymphocytes Absolute Auto 1300 /uL (1100-4500); Lymphocytes Percent Auto 24.3 % (25-40); Mean Corpuscular HGB Conc 33.2 % (30-36); Mean Corpuscular Hemoglobin 30.7 PG (26-34); Mean Corpuscular Volume 92.4 fL (80-100); Monocytes Absolute Auto 500 /uL (0-900); Neutrophils Absolute Auto 3400 /uL (1500-7000); Neutrophils Percent Auto 63.4 % (50-75); Platelet Count 109 X10^3/uL (150-400); Red Blood Cell Count 3.22 X10^6/uL (4.5-5.9); Red Cell Distribution Width 13.4 % (11.6-14.8); White Blood Cell Count 5.3 X10^3/uL (4.5-11.0)
[2021-05-03 07:23] LABS: Alanine Aminotransferase 79 IU/L (<50); Albumin 3.1 g/dL (3.5-5.0); Albumin Globulin Ratio 0.9 (1.0-2.8); Alkaline Phosphatase 97 U/L (38-126); Aspartate Aminotransferase 52 IU/L (17-59); BUN Creatinine Ratio 36.5 (6-22); Bilirubin Total 0.5 mg/dL (0.2-1.3); Blood Urea Nitrogen 54 mg/dL (9-20); Calcium 8.8 mg/dL (8.4-10.2); Carbon Dioxide 27 mmol/L (22-32); Chloride 106 mmol/L (98-107); Estimated Glomerular Filt Rate 46.2 mL/min (>60); Globulin 3.4 g/dL (1.7-4.1); Glucose 118 mg/dL (80-110); HEMOLYSIS < 15 (0-50); Potassium 3.8 mmol/L (3.4-5.1); Sodium 137 mmol/L (137-145); Total Protein 6.5 g/dL (6.3-8.2)
[2021-05-03 07:24] LABS: Hemoglobin A1C% w Est Avg Glu 11.9 % (4.0-6.0)
[2021-05-03] MEDS: GABAPENTIN 300 MG CAPSULE PO (08:37)
[2021-05-03] MEDS: HEPARIN 5,000 UNIT/ML VIAL 5000 UNIT SUBCUT ×2 (08:37→20:22)
[2021-05-03] MEDS: cefTRIAXone 1,000 MG in SODIUM CHLORIDE 0.9% 100 ML 200 ML IV (08:37)
[2021-05-03] MEDS: DULOXETINE 30 MG CAPSULE 60 MG PO (08:37)
[2021-05-03] MEDS: ASPIRIN EC 81 MG TABLET PO (08:37)
--- NOTE | 2021-05-03 11:11 | CM.DANOTE ---
DCP: Case received, EMR reviewed and met with patient. Introduced self and role. Was able to obtain information from patient regarding his baseline activity status at home prior to his hospitalization, and his current living condition. DCP assessment completed with information currently available. Patient is a 75 year old male who admitted yesterday evening to the care of the hospitalist team. PCP: Dr. Jones. Payer: confirmed: Medicare/[employer]. Patient came to the hospital via ambulance secondary to having increased weakness, diaphoresis, as well as a headache. Patient holds diagnosis of acute pancreatitis, AKA, as well as UTI. Patient has had ETOH history, but had stopped drinking approximately 2-3 months ago. Patient is an insulin dependent diabetic, and according to notes, is not consistent upon checking his blood sugars. He is also a below the right knee amputee. Met with patient in his room. He was sitting up in his bed. He is alert, was able to answer some questions. He did confirm his primary provider, Dr. Jones. He resides in [place] with his spouse, Nikki. He stated, his has some dementia. Asked him is she was ok at home, he did not seem concerned. Asked him about his baseline mobility at home, and he indicated that he uses a wheel-chair. He stated, he has driven before, but not lately. According to team rounds, patient is anticipated to be here for a couple of days. P: DCP to continue to follow for needs. He may benefit with home health nursing, for home med management. Felisha Jo RN/Electrical Products Engineer
--- NOTE | 2021-05-03 11:53 | P.PN_ITS ---
Subjective Subjective Date Patient Seen: 05/03/21 Time Patient Seen: 08:00 Interval history: Today he says he feels his back is painful. No further headache. He still has some abdominal pain, but much improved. He wants to eat. Exam Vital Signs (past 8 hours): - 05/03/21 05:50 05/03/21 06:00 05/03/21 10:00 Temperature 96.9 F L Pulse Rate 71 67 68 Respiratory Rate 16 Blood Pressure 153/97 H 139/84 Pulse Oximetry 94 96 Oxygen Delivery Method Room Air Oxygen Flow Rate 0 Narrative Exam Narrative: GEN: no acute distress HEENT: moist mucous membranes CV: regular rate and rhythm with 2/6 chio PULM clear bilaterally, no wheezes, rhonchi, rales ABD: soft, moderately tender epigastric, no rebound/guarding, normal bowel sounds EXT: warm and well perfused, bka noted Objective Labs Result Diagrams: 05/03/21 07:01 05/03/21 07:01 Labs: Laboratory Results - last 24 hr 05/02/21 05/02/21 05/02/21 16:20 16:20 16:20 WBC 6.2 RBC 3.46 L Hgb 10.6 L Hct 31.9 L MCV 92.3 MCH 30.8 MCHC 33.4 RDW 13.6 Plt Count 127 L Neut % (Auto) 70.7 Lymph % (Auto) 18.3 L [place] % (Auto) 8.8 Eos % (Auto) 1.6 L Baso % (Auto) 0.6 Neut # (Auto) 4400 Lymph # (Auto) 1100 [place] # (Auto) 500 Eos # (Auto) 100 Baso # (Auto) 0 Sodium 135 L Potassium 5.1 Chloride 101 Carbon Dioxide 28 BUN 65 H Creatinine 2.14 H Estimated GFR 30.2 L BUN/Creatinine Ratio 30.4 H Glucose 127 H Hemoglobin A1c Lactate 2.5 H Calcium 9.3 Total Bilirubin 0.6 AST 52 ALT 85 H Alkaline Phosphatase 110 Total Creatine Kinase CK-MB (CK-2) CK-MB (CK-2) Rel Index Troponin I NT-Pro-B Natriuret Pep Total Protein 7.3 Albumin 3.5 Globulin 3.8 Albumin/Globulin Ratio 0.9 L Lipase 778 H Procalcitonin 1.54 H Urine Color Urine Appearance Urine pH Ur Specific [place] Urine Protein Urine Glucose (UA) Urine Ketones Urine Occult Blood Urine Nitrate Urine Bilirubin Urine Urobilinogen Ur Leukocyte Esterase Urine RBC Urine WBC Urine Bacteria Ur Culture Indicated? Ethyl Alcohol SARS-CoV-2 (PCR) 05/02/21 05/02/21 05/02/21 16:20 16:20 18:30 WBC RBC Hgb Hct MCV MCH MCHC RDW Plt Count Neut % (Auto) Lymph % (Auto) [place] % (Auto) Eos % (Auto) Baso % (Auto) Neut # (Auto) Lymph # (Auto) [place] # (Auto) Eos # (Auto) Baso # (Auto) Sodium Potassium Chloride Carbon Dioxide BUN Creatinine Estimated GFR BUN/Creatinine Ratio Glucose Hemoglobin A1c Lactate Calcium Total Bilirubin AST ALT Alkaline Phosphatase Total Creatine Kinase 28 L CK-MB (CK-2) TNP CK-MB (CK-2) Rel Index TNP Troponin I < 0.012 NT-Pro-B Natriuret Pep 80 Total Protein Albumin Globulin Albumin/Globulin Ratio Lipase Procalcitonin Urine Color Urine Appearance Urine pH Ur Specific [place] Urine Protein Urine Glucose (UA) Urine Ketones Urine Occult Blood Urine Nitrate Urine Bilirubin Urine Urobilinogen Ur Leukocyte Esterase Urine RBC Urine WBC Urine Bacteria Ur Culture Indicated? Ethyl Alcohol < 10 SARS-CoV-2 (PCR) Negative 05/02/21 05/03/21 05/03/21 21:03 03:00 07:01 WBC 5.3 RBC 3.22 L Hgb 9.9 L Hct 29.8 L MCV 92.4 MCH 30.7 MCHC 33.2 RDW 13.4 Plt Count 109 L Neut % (Auto) 63.4 Lymph % (Auto) 24.3 L [place] % (Auto) 9.0 Eos % (Auto) 2.7 Baso % (Auto) 0.6 Neut # (Auto) 3400 Lymph # (Auto) 1300 [place] # (Auto) 500 Eos # (Auto) 100 Baso # (Auto) 0 Sodium Potassium Chloride Carbon Dioxide BUN Creatinine Estimated GFR BUN/Creatinine Ratio Glucose Hemoglobin A1c Lactate 1.8 Calcium Total Bilirubin AST ALT Alkaline Phosphatase Total Creatine Kinase CK-MB (CK-2) CK-MB (CK-2) Rel Index Troponin I NT-Pro-B Natriuret Pep Total Protein Albumin Globulin Albumin/Globulin Ratio Lipase Procalcitonin Urine Color Yellow Urine Appearance Cloudy Urine pH 5.5 Ur Specific [place] 1.010 Urine Protein 1+ H Urine Glucose (UA) Trace H Urine Ketones Negative Urine Occult Blood 2+ H Urine Nitrate Negative Urine Bilirubin Negative Urine Urobilinogen 0.2 Ur Leukocyte Esterase 3+ H Urine RBC None seen Urine WBC >100/hpf H Urine Bacteria Many (>30) H Ur Culture Indicated? Specimen cultured Ethyl Alcohol SARS-CoV-2 (PCR) 05/03/21 05/03/21 07:01 07:01 WBC RBC Hgb Hct MCV MCH MCHC RDW Plt Count Neut % (Auto) Lymph % (Auto) [place] % (Auto) Eos % (Auto) Baso % (Auto) Neut # (Auto) Lymph # (Auto) [place] # (Auto) Eos # (Auto) Baso # (Auto) Sodium 137 Potassium 3.8 D Chloride 106 Carbon Dioxide 27 BUN 54 H Creatinine 1.48 H Estimated GFR 46.2 L BUN/Creatinine Ratio 36.5 H Glucose 118 H Hemoglobin A1c 11.9 H Lactate Calcium 8.8 Total Bilirubin 0.5 AST 52 ALT 79 H Alkaline Phosphatase 97 Total Creatine Kinase CK-MB (CK-2) CK-MB (CK-2) Rel Index Troponin I NT-Pro-B Natriuret Pep Total Protein 6.5 Albumin 3.1 L Globulin 3.4 Albumin/Globulin Ratio 0.9 L Lipase Procalcitonin Urine Color Urine Appearance Urine pH Ur Specific [place] Urine Protein Urine Glucose (UA) Urine Ketones Urine Occult Blood Urine Nitrate Urine Bilirubin Urine Urobilinogen Ur Leukocyte Esterase Urine RBC Urine WBC Urine Bacteria Ur Culture Indicated? Ethyl Alcohol SARS-CoV-2 (PCR) PFSH Medical History Diabetes Hyperlipidemia Hypertension Surgical History (Updated 05/02/21 @ 21:26 by Iris Bello MD) Hx of right BKA Family History (Updated 05/02/21 @ 21:26 by Iris Bello MD) Mother Lymphoma Social History household members: spouse and other lives independently: Yes Smoking Status: Former smoker alcohol intake: former Assessment & Plan Assessment & Plan narrative: Mr. Clay is a 75M who is admitted with abdominal pain concerning for acute pancreatitis 1. Acute pancreatitis -previous hx of etoh use, but none recently -lipase mildly elevated 778 -etiology not clear, no etoh use, gallstones shows stones but lfts ok, lipids ordered but think unlikely, does not appear he is on any new meds -CT shows peripancreatic fat stranding -ordered for IV fluid, nausea and pain meds -advance diet to clears 2. Hypotension -elevated lactate initially, improved with IVFs -hypotension resolved -hold diuretics and anti-hypertensives for nwo 3. RAFY -baseline unknown -on admission 2.14, now improved to 1.48 -holding rosendo-inhibitor and lasix 4. Hyperlipidemia -continue statin 5. Type 2 diabetes -patient previously on 100 units of Lantus twice daily -a1c>10 -as he is NPO will decrease his insulin to 50 units twice daily plus a sliding scale, will likely need to increase as advance diet 7. Diabetic polyneuropathy -will continue Neurontin 8. Question history of heart failure coronary disease -patient on Coreg 25 twice daily, and aspirin, will continue same 9. Anxiety and depression -continue Cymbalta 10. Presumed UTI -UA grossly positive -procalcitonin elevated -urine/blood cx pending -ceftriaxone 1gm daily for 5 days Patient reports his son is his DPOA Patient also reports he would like to be a full code Time Spent With Patient Critical Care time: I spent a total of [] minutes of critical care time on this patient's care today; this time is exclusive of procedural time.
[2021-05-03] MEDS: ACETAMINOPHEN 325 MG TABLET 650 MG PO (13:35)
[2021-05-03] MEDS: LACTATED RINGERS 1,000 ML 1000 ML IV (16:38)
[2021-05-03] MEDS: LACTATED RINGERS 1,000 ML 150 ML IV (17:05)
--- NOTE | 2021-05-03 17:09 | PC.NURSE ---
Addendum entered by Marianne Rooney R.N. 05/03/21 22:02: Discussion with Dr. Eugenia lara pt's blood sugar readings this evening shift and order for 50 units Lantus insulin. Reviewed with MD events last overnight re blood sugar. Orders to give 25 units this evening. Addendum entered by Marianne Rooney R.N. 05/03/21 19:46: No further complaints of pain by patient. Pt mostly sleeping. Pt has reported tylenol ineffective to manage pain. Discussion with Dr. Renetta lara patient's pain management/orders. Addendum entered by Marianne Rooney R.N. 05/03/21 17:33: Bolus completed, BP 136/78 with HR 74. Pt denies shoulder pain and reports headache pain is minimal. Now c/o buttocks pain and requests barrier cream. Waffle cushion and barrier cream provided to pt and pt assisted with these products. Original Note: Pt's blood pressure rechecked and recorded following LINING REPAIRER's initial reporting. Pt is awake, alert, conversant, but pale. BP 88/61 with HR 72. Pt moves self in bed for assessment and c/o headache with sitting upright in bed. Pt immediately placed in supine position and reports improvement in headache pain. Pt c/o feeling cold and reports pain in shoulders BL. States doesn't feel well. Dr. Jackson was informed of all of these complaints and findings and in to see patient. 1000 cc bolus LR initiated. Oral fluids taken well 100% of clear liquid tray. Will hold off on narcotics pending increase in BP and pt was informed of this by MD. LLE scd replaced with explanation to patient. Once bolus completed, will increase iv fluid rate as ordered. Plan to continue to monitor urinary output and blood pressures.
[2021-05-03] MEDS: DOCUSATE 100 MG CAPSULE PO (20:22)
[2021-05-03] MEDS: SENNOSIDES 8.6 MG TABLET 17.2 MG PO (20:22)
[2021-05-03] MEDS: ATORVASTATIN 20 MG TABLET 40 MG PO (20:22)
[2021-05-03] MEDS: INSULIN GLARGINE 100 UNIT/ML 3ML PEN 25 UNIT SUBCUT (22:23)
[2021-05-03] MEDS: HYDROCODONE/ACET 5/325 TABLET 1 TAB PO (23:52)
[2021-05-04] VITALS (8 sets, daily range): BP systolic 132–156; BP diastolic 82–89; PULSE 68–84; RESP 14–20; TEMP 35.8–36.3; O2SAT 94–100
[2021-05-04] MEDS: DEXTROSE 50 % IN WATER 25 GM/50 ML SYRINGE IV (04:53)
[2021-05-04 05:42] LABS: BUN Creatinine Ratio 33.3 (6-22); Blood Urea Nitrogen 32 mg/dL (9-20); Calcium 8.4 mg/dL (8.4-10.2); Carbon Dioxide 27 mmol/L (22-32); Chloride 108 mmol/L (98-107); Cholesterol 126 mg/dL (140-199); Estimated Glomerular Filt Rate > 60.0 mL/min (>60); Glucose 127 mg/dL (80-110); HDL Cholesterol 29 mg/dL (40-60); HEMOLYSIS < 15 (0-50); LDL Cholesterol Calculated 53 mg/dL (<100); Potassium 4.5 mmol/L (3.4-5.1); Sodium 136 mmol/L (137-145); Triglycerides 218 mg/dL (35-150)
[2021-05-04 05:46] LABS: Hematocrit 28.8 % (41-53); Hemoglobin 9.6 g/dL (13.5-17.5); Mean Corpuscular HGB Conc 33.3 % (30-36); Mean Corpuscular Hemoglobin 30.8 PG (26-34); Mean Corpuscular Volume 92.4 fL (80-100); Platelet Count 106 X10^3/uL (150-400); Red Blood Cell Count 3.12 X10^6/uL (4.5-5.9); Red Cell Distribution Width 13.6 % (11.6-14.8); White Blood Cell Count 4.8 X10^3/uL (4.5-11.0)
[2021-05-04] MEDS: LACTATED RINGERS 1,000 ML 150 ML IV (07:00)
[2021-05-04] MEDS: ASPIRIN EC 81 MG TABLET PO (08:02)
[2021-05-04] MEDS: DULOXETINE 30 MG CAPSULE 60 MG PO (08:02)
[2021-05-04] MEDS: GABAPENTIN 300 MG CAPSULE PO (08:02)
[2021-05-04] MEDS: DOCUSATE 100 MG CAPSULE PO ×2 (08:02→20:43)
[2021-05-04] MEDS: cefTRIAXone 1,000 MG in SODIUM CHLORIDE 0.9% 100 ML 200 ML IV (08:02)
[2021-05-04] MEDS: HEPARIN 5,000 UNIT/ML VIAL 5000 UNIT SUBCUT ×2 (08:03→20:42)
--- NOTE | 2021-05-04 10:07 | PC.NURSE ---
Patient resting in bed, denies abdominal pain, reports pain in buttocks. Repositioned for comfort. Patient on RA @ 100%, Lungs CTA. Midline in RUE, saline locked. SCD on LLE. Reports last BM 05/03, BT active x 4. Voiding with no complications. Tolerating clear liquid diet. Call light in reach, patient denies needs at this time.
--- NOTE | 2021-05-04 10:13 | PM.PN.1 ---
Subjective Subjective Date Patient Seen: 05/04/21 Time Patient Seen: 10:13 Interval history: No epigastric pain, more lower abdomen today. Also with continued low back pain. Not much relief with oxycodone. Exam Vital Signs (past 8 hours): - 05/04/21 04:40 05/04/21 08:02 Temperature 96.4 F L 96.8 F L Pulse Rate 71 68 Respiratory Rate 14 14 Blood Pressure 148/87 H 156/86 H Pulse Oximetry 94 100 Oxygen Delivery Method Room Air Oxygen Flow Rate 0 Narrative Exam Narrative: GEN: no acute distress HEENT: moist mucous membranes, no scleral icterus CV: regular rate and rhyth, no m/r/g PULM clear bilaterally, no wheezes, rhonchi, rales ABD: soft, non-tender, non-distended EXT: warm and well perfused, RLE amputee Objective Labs Result Diagrams: 05/04/21 05:20 05/04/21 05:20 Labs: Laboratory Results - last 24 hr 05/04/21 05/04/21 05:20 05:20 WBC 4.8 RBC 3.12 L Hgb 9.6 L Hct 28.8 L MCV 92.4 MCH 30.8 MCHC 33.3 RDW 13.6 Plt Count 106 L Sodium 136 L Potassium 4.5 Chloride 108 H Carbon Dioxide 27 BUN 32 H Creatinine 0.96 Estimated GFR > 60.0 BUN/Creatinine Ratio 33.3 H Glucose 127 H Calcium 8.4 Triglycerides 218 H Cholesterol 126 L LDL Cholesterol, Calc 53 HDL Cholesterol 29 L PFSH Medical History Diabetes Hyperlipidemia Hypertension Surgical History (Updated 05/02/21 @ 21:26 by Iris Bello MD) Hx of right BKA Family History (Updated 05/02/21 @ 21:26 by Iris Bello MD) Mother Lymphoma Social History household members: spouse and other lives independently: Yes Smoking Status: Former smoker alcohol intake: former Assessment & Plan Assessment & Plan narrative: ?Mr. Clay is a 75M who is admitted with abdominal pain concerning for acute pancreatitis 1. Acute pancreatitis -previous hx of etoh use, but none recently -lipase mildly elevated 778 -etiology not clear, no etoh use, gallstones shows stones but lfts ok, TG level 218, does not appear he is on any new meds -CT shows peripancreatic fat stranding -advance to low fat diet today. 2. Hypotension -elevated lactate initially, improved with IVFs -hypotension resolved -held diuretics and anti-hypertensives, resume home coreg only today at 6.25 mg BID 3. RAFY -baseline unknown -on admission 2.14, now improved to normal -holding rosendo-inhibitor and lasix still. -continue to follow now on low fat diet 4. Hyperlipidemia -continue statin 5. Type 2 diabetes -patient previously on 100 units of Lantus twice daily -a1c>10 -as he is NPO will decrease his insulin to 50 units twice daily plus a sliding scale, will likely need to increase as advance diet 7. Diabetic polyneuropathy -will continue Neurontin 8. Question history of heart failure coronary disease -patient on Coreg 25 twice daily, and aspirin, will continue same 9. Anxiety and depression -continue Cymbalta 10. Acute cystitis -UA grossly positive, some lower abdominal pain as well. -procalcitonin elevated -urine/blood cx pending, urine currently with gram negative organisms. -ceftriaxone 1gm daily for 5 days Patient reports his son is his DPOA Patient also reports he would like to be a full code Time Spent With Patient Critical Care time: I spent a total of [] minutes of critical care time on this patient's care today; this time is exclusive of procedural time.
[2021-05-04] MEDS: carvediloL 3.125 MG TABLET 6.25 MG PO ×2 (11:24→20:43)
[2021-05-04] MEDS: OXYCODONE/ACETAMINOPHEN 5/325 TABLET 1 TAB PO ×2 (11:25→23:45)
[2021-05-04] MEDS: INSULIN LISPRO 100 UNIT/ML 3ML VIAL SUBCUT ×3 (11:31→20:45)
[2021-05-04] MEDS: SENNOSIDES 8.6 MG TABLET 17.2 MG PO (20:43)
[2021-05-04] MEDS: ATORVASTATIN 20 MG TABLET 40 MG PO (20:44)
[2021-05-05 04:10] VITALS: BP 141/87; PULSE 78; RESP 18; TEMP 36.1; O2SAT 97
[2021-05-05 05:43] LABS: Add Manual Diff / Slide Review NO; Basophils Absolute Auto 0 /uL (0-100); Basophils Percent Auto 0.8 % (0-2); Eosinophils Absolute Auto 100 /uL (0-450); Eosinophils Percent Auto 2.6 % (2-4); Hematocrit 32.5 % (41-53); Hemoglobin 10.8 g/dL (13.5-17.5); Lymphocytes Absolute Auto 1700 /uL (1100-4500); Lymphocytes Percent Auto 29.2 % (25-40); Mean Corpuscular HGB Conc 33.1 % (30-36); Mean Corpuscular Hemoglobin 30.4 PG (26-34); Mean Corpuscular Volume 91.6 fL (80-100); Monocytes Absolute Auto 600 /uL (0-900); Neutrophils Absolute Auto 3300 /uL (1500-7000); Neutrophils Percent Auto 56.4 % (50-75); Platelet Count 112 X10^3/uL (150-400); Red Blood Cell Count 3.54 X10^6/uL (4.5-5.9); Red Cell Distribution Width 13.2 % (11.6-14.8); White Blood Cell Count 5.8 X10^3/uL (4.5-11.0)
[2021-05-05 05:50] LABS: BUN Creatinine Ratio 18.1 (6-22); Blood Urea Nitrogen 19 mg/dL (9-20); Calcium 8.8 mg/dL (8.4-10.2); Carbon Dioxide 29 mmol/L (22-32); Chloride 107 mmol/L (98-107); Estimated Glomerular Filt Rate > 60.0 mL/min (>60); Glucose 145 mg/dL (80-110); HEMOLYSIS < 15 (0-50); Potassium 4.9 mmol/L (3.4-5.1); Sodium 136 mmol/L (137-145)
[2021-05-05 08:00] VITALS: BP 153/74; PULSE 80; RESP 16; TEMP 36.8; O2SAT 99
[2021-05-05] MEDS: cefTRIAXone 1,000 MG in SODIUM CHLORIDE 0.9% 100 ML 200 ML IV (08:58)
[2021-05-05] MEDS: INSULIN LISPRO 100 UNIT/ML 3ML VIAL SUBCUT ×2 (09:01→12:20)
[2021-05-05] MEDS: HEPARIN 5,000 UNIT/ML VIAL 5000 UNIT SUBCUT (09:02)
[2021-05-05] MEDS: DOCUSATE 100 MG CAPSULE PO (09:02)
[2021-05-05] MEDS: carvediloL 3.125 MG TABLET 6.25 MG PO (09:02)
[2021-05-05] MEDS: DULOXETINE 30 MG CAPSULE 60 MG PO (09:02)
[2021-05-05] MEDS: ASPIRIN EC 81 MG TABLET PO (09:02)
[2021-05-05] MEDS: GABAPENTIN 300 MG CAPSULE PO (09:02)
--- NOTE | 2021-05-05 09:40 | P.DS_ITS ---
History of Present Illness History of Present Illness Date Patient Seen: 05/05/21 Time Patient Seen: 09:40 Chief complaint: headache Narrative: Per Dr. Bello, ?The patient is a 75-year-old male with a history of type 2 diabetes, hypertension, hyperlipidemia, prior history of pancreatitis, remote history of EtOH use who quit 3 months ago who presented to the hospital for acute abdominal pain.? Patient states that today he woke up and was feeling quite shaky unsteady and dizzy.? He also complained of a headache and neck pain.? Because he was feeling poorly he presented to the hospital for evaluation.? Patient also reports lower diffuse abdominal pain.? He has no nausea or vomiting.? He does report constipation.? He has had no fever chills or cough.? He denies any shortness of breath chest pain or palpitations.? The patient does have a right BKA.? He also has ulceration on the left lower extremity and has a dressing in place which she changes weekly.? The patient was evaluated in the emergency room.? White count was normal at 6.2.? He was found to have a creatinine of 2.14, baseline unknown.? In addition he was found to have a lipase of 778 with a procalcitonin of 1.54. A CT of the abdomen and pelvis revealed an enlarged p ancreas with mild pancreas peripancreatic fat stranding suggestive of acute pancreatitis.? There was a lobulated liver which could represent early cirrhosis.? Patient is admitted to the hospital for treatment of acute pancreatitis Discharge Providers Provider Date of admission: 05/02/21 19:04 Discharge Date: 05/05/21 Discharge provider: Brad Reddy DO Summary Hospital Course Hospital Course: hemanth Clay is a 75M who is admitted with abdominal pain concerning for acute pancreatitis 1. Acute pancreatitis -previous hx of etoh use, but none recently -lipase mildly elevated 778 -etiology not clear, no etoh use, gallstones shows stones but lfts ok, lipids ordered but think unlikely, does not appear he is on any new meds -CT shows peripancreatic fat stranding -ordered for IV fluid, nausea and pain meds -advance diet to clears 2. Hypotension -elevated lactate initially, improved with IVFs -hypotension resolved -hold diuretics and anti-hypertensives for nwo 3. RAFY -baseline unknown -on admission 2.14, now improved to 1.48 -holding rosendo-inhibitor and lasix 4. Hyperlipidemia -continue statin 5. Type 2 diabetes -patient previously on 100 units of Lantus twice daily -a1c>10 -as he is NPO will decrease his insulin to 50 units twice daily plus a sliding scale, will likely need to increase as advance diet 7. Diabetic polyneuropathy -will continue Neurontin 8. Question history of heart failure coronary disease -patient on Coreg 25 twice daily, and aspirin, will continue same 9. Anxiety and depression -continue Cymbalta 10. Acute cystitis -UA grossly positive, cultures with enterococcus.Blood culture negative. -procalcitonin elevated -ceftriaxone 1gm daily initially, changed to single dose of fosfomycin day of discharge for full treatment of enterococcus UTI. Patient reports his son is his DPOA Patient also reports he would like to be a full code Exam Vital Signs (past 8 hours): - 05/05/21 04:10 Temperature 97.0 F L Pulse Rate 78 Respiratory Rate 18 Blood Pressure 141/87 H Pulse Oximetry 97 Oxygen Delivery Method Room Air Oxygen Flow Rate 0 Objective Labs Result Diagrams: 05/05/21 05:24 05/05/21 05:24 Labs: Laboratory Results - last 24 hr 05/05/21 05/05/21 05:24 05:24 WBC 5.8 RBC 3.54 L Hgb 10.8 L Hct 32.5 L MCV 91.6 MCH 30.4 MCHC 33.1 RDW 13.2 Plt Count 112 L Neut % (Auto) 56.4 Lymph % (Auto) 29.2 [place] % (Auto) 11.0 Eos % (Auto) 2.6 Baso % (Auto) 0.8 Neut # (Auto) 3300 Lymph # (Auto) 1700 [place] # (Auto) 600 Eos # (Auto) 100 Baso # (Auto) 0 Sodium 136 L Potassium 4.9 Chloride 107 Carbon Dioxide 29 BUN 19 Creatinine 1.05 Estimated GFR > 60.0 BUN/Creatinine Ratio 18.1 Glucose 145 H Calcium 8.8 PFSH Medical History Diabetes Hyperlipidemia Hypertension Surgical History (Updated 05/02/21 @ 21:26 by Iris Bello MD) Hx of right BKA Family History (Updated 05/02/21 @ 21:26 by Iris Bello MD) Mother Lymphoma Social History household members: spouse and other lives independently: Yes Smoking Status: Former smoker alcohol intake: former Discharge Plan Discharge Plan Patient Disposition: Home Provider Discharge Comment: You were admitted to the hospital with pancreatitis, it is not clear what caused this but the most common causes have been ruled out. Please follow a low fat diet at home. you were also found to have a UTI which was treated in the hospital. Some of your diuretic medications were stopped, please follow up with your PCP to see about either restarting these or if you need these in the future. Discharge orders & Medications Prescriptions: Continued duloxetine [Cymbalta] 60 MG capsule,delayed release(DR/EC) 60 mg PO HS Qty: 0 RF: 0 carvedilol [Coreg] 25 MG tablet 25 mg PO BID Qty: 0 RF: 0 losartan [Cozaar] 50 MG tablet 50 mg PO QPM Qty: 0 RF: 0 atorvastatin [Lipitor] 40 MG tablet 40 mg PO QPM Qty: 0 RF: 0 Lantus U-100 Insulin 100 UNIT/1 ML solution 110 unit SUBCUT BID Qty: 0 RF: 0 aspirin 81 MG tablet,chewable 81 mg PO DAILY Qty: 0 RF: 0 acetaminophen 325 mg Tablet 650 mg PO Q4H PRN (Reason: Pain (Scale Score 1-3)) RF: 0 ipratropium-albuterol 0.5 mg-3 mg(2.5 mg base)/3 mL Solution For Nebulization 3 ml INHALATION QID RF: 0 miconazole nitrate 2 % Cream 1 applic TOPICAL BID RF: 0 nystatin-triamcinolone 100,000-0.1 unit/gram-% Ointment 1 applic TOPICAL BID PRN (Reason: Rash) RF: 0 tamsulosin 0.4 mg Capsule 0.4 mg PO DAILY RF: 0 ferrous sulfate [Iron (ferrous sulfate)] 325 mg (65 mg iron) Tablet 325 mg PO BID RF: 0 fluconazole 50 mg Tablet 150 mg PO WEEKLY RF: 0 nitroglycerin 0.4 mg Tablet, Sublingual 0.4 mg SUBLINGUAL Q5M PRN (Reason: Chest Pain) RF: 0 omeprazole 20 mg Capsule,Delayed Release(Dr/Ec) 20 mg PO BID RF: 0 clobetasol 0.05 % Ointment 1 applic TOPICAL DAILY PRN (Reason: Rash) RF: 0 albuterol sulfate [ProAir HFA] 90 mcg/actuation Hfa Aerosol Inhaler 2 puff INHALATION Q4-6H PRN (Reason: Wheezing) RF: 0 fluticasone propionate [Allergy Relief (fluticasone)] 50 mcg/actuation [place],Suspension 2 spray INTRANASAL DAILY RF: 0 docusate sodium 100 mg Tablet 100 mg PO DAILY RF: 0 loratadine [Allergy Relief (loratadine)] 10 mg Tablet 10 mg PO DAILY PRN (Reason: Allergic Symptoms) RF: 0 gabapentin [Neurontin] 300 MG capsule 300 mg PO TID RF: 0 Discontinued furosemide 40 MG tablet 40 mg PO BID Qty: 0 RF: 0 spironolactone 25 mg Tablet 25 mg PO DAILY RF: 0 Diet/Activity/Treatments Diet: Diet as Tolerated and Low-fat Activity: As tolerated
--- NOTE | 2021-05-05 10:31 | PC.NURSE ---
Patient has a R.BKA, and his l.leg is dusky and brownish colored. He has a pedal pulse present, slight edema to leg. He is diabeltic and blood sugar 137. One unit of insulin given. He denies mid quadrant pain, tolerating diet well and no nausea. Patient is going to be discharged home today.
[2021-05-05] MEDS: FOSFOMYCIN 3 GM PACKET PO (10:57)
--- NOTE | 2021-05-05 11:52 | CM.DPC ---
DCP Cont: Discussed patient during team rounds, and he will be discharged home today. Home health has been ordered, but Dr. Reddy indicated that he should not need P.T. Will order nursing. Spoke to patient about home health. He stated, I don't really think I need it, I'm familiar with my medications. He is consenting to try home health, but has no preferences upon agencies. [facility] is on the calendar for today, and he lives in [place]. Went ahead and called [facility], spoke to Renetta, and let her know that referral was coming, and that he lives in [place] and would need nursing visit. Faxed over face sheet, progress note from 05/03 since face to face was signed that day. Included orders, face to face, H&P, DC summary, and 05-03 progress note. Went ahead and gave patient his copy of his IMM, and gave him a [facility] brochure to take with him. Asked him if he had someone to pick him up, and he indicated that he would be calling a friend. P: Patient is to discharge home today with [facility] nursing. Felisha Jo RN/Rope Tow Operator
[2021-05-05 12:00] VITALS: BP 149/80; PULSE 93; RESP 20; TEMP 36.8; O2SAT 99
[2021-05-05 14:41] LABS: Hepatitis B Surface Antigen NEGATIVE s/c (NEGATIVE)
[2021-05-05 14:58] LABS: Hep C Virus Ab w/Reflex Quant NEGATIVE s/c (NEGATIVE)
[2021-05-05 15:41] LABS: HIV 1 & 2 Ab/Ag 4th Gen Combo REACTIVE (NEGATIVE)
[2021-05-06 09:36] LABS: Hepatitis B Surf Ab Qualitativ Non Reactive (.)
--- NOTE | 2021-05-10 13:02 | CM.DPNOTE ---
Late Entry: Received a call from Adwoa at [facility] on 05/10/21 at 1300, saying this pt. is refusing home health. Saira Novak CM Asst.
== END 2021-05-05 13:10 | disposition home or self-care (01) | DRG 439 ==
LOC: ED 18:18 → AC 19:05
PROVIDERS: Internal Medicine; Admitting Provider Internal Medicine; Emergency Provider Emergency Medicine; Family Provider Internal Medicine; Referring Provider Emergency Medicine; Visit Provider Internal Medicine
DX: K85.90 Acute pancreatitis without necrosis or infection, unspecified (principal); N17.9 Acute kidney failure, unspecified; N30.00 Acute cystitis without hematuria; I95.9 Hypotension, unspecified; R75 Inconclusive laboratory evidence of human immunodeficiency virus [HIV]; E78.5 Hyperlipidemia, unspecified; E11.40 Type 2 diabetes mellitus with diabetic neuropathy, unspecified; F41.9 Anxiety disorder, unspecified; F32.9 Major depressive disorder, single episode, unspecified; I25.10 Atherosclerotic heart disease of native coronary artery without angina pectoris; Z87.891 Personal history of nicotine dependence; Z79.4 Long term (current) use of insulin; Z20.822 Contact with and (suspected) exposure to COVID-19
CPT/HCPCS: 36415; 70450; 71045; 74177; 80048; 80053; 80061; 80320; 81001; 82550; 82962; 83036; 83605; 83690; 83880; 84145; 84484; 85025; 85027; 86706; 86803; 87040; 87077; 87086; 87186; 87340; 87389; 87535; 87635; 93005; 96360; 96361; 99284; C9803; J0696; J1644; J1815; J2270; Q9967